=== PATIENT | male | born 1935 | race Caucasian/White ===

== ENCOUNTER 2018-11-26 13:15 | Emergency (ER) | payer MEDICARE ==
[~2018-11-26] VITALS: Ht 177.8 cm; Wt 68.0 kg
[~2018-11-26 13:15] MED LIST: ASPIRIN EC81 MG PO; CHOLESTEROL MED
[2018-11-26] MEDS ORDERED: METOPROLOL SUCC25 MG PO (13:26)
[2018-11-26] MEDS ORDERED: KEFLEX500 MG PO (15:31)
== END 2018-11-26 15:56 | disposition home or self-care (01) ==
LOC: ED 13:15
PROC: 0HQQXZZ Repair Finger Nail, External Approach (ICD-10-PCS; principal; 2018-11-26)
DX: S61.311A Laceration without foreign body of left index finger with damage to nail, initial encounter (principal); E78.00 Pure hypercholesterolemia, unspecified; Z95.5 Presence of coronary angioplasty implant and graft; Z23 Encounter for immunization; W31.2XXA Contact with powered woodworking and forming machines, initial encounter
CPT/HCPCS: 11760; 90471; 90715; 99282-25

== ENCOUNTER 2022-01-29 11:13 | Emergency (ER) | payer MEDICARE ==
[~2022-01-29] VITALS: Ht 177.8 cm; Wt 68.0 kg
[~2022-01-29 11:13] MED LIST changes: +KEFLEX500 MG PO; +METOPROLOL SUCC25 MG PO
[2022-01-29] MEDS ORDERED: ATORVASTATIN CA80 MG PO (11:33)
[2022-01-29] MEDS ORDERED: UROXATRAL10 MG PO (11:34)
[2022-01-29] MEDS ORDERED: PROSCAR5 MG PO (11:35)
[2022-01-29] MEDS ORDERED: ZITHROMAX250 MG PO (12:36)
== END 2022-01-29 12:45 | disposition home or self-care (01) ==
LOC: ED 11:13
DX: J18.9 Pneumonia, unspecified organism (principal); E78.00 Pure hypercholesterolemia, unspecified; Z79.899 Other long term (current) drug therapy
CPT/HCPCS: 71046; 99283-25; A9270

== ENCOUNTER 2022-01-29 19:56 | Inpatient (IN) | payer MEDICARE ==
[~2022-01-29] VITALS: Ht 177.8 cm; Wt 71.1 kg
[~2022-01-29 19:56] MED LIST changes: +ATORVASTATIN CA80 MG PO; +PROSCAR5 MG PO; +UROXATRAL10 MG PO; +ZITHROMAX250 MG PO
--- OUTSIDE RECORDS SUMMARY | 2022-01-29 20:04 | XMS ---
PreManage Notification: JUDI SEO Security Pest Locator Events No recent Security Events currently on file CRITERIA MET - [facility] - 2 Visits in 30 Days CARE PROVIDERS There are no care providers on record at this time. Dora has no Care Guidelines for this patient. Karina VISIT COUNT (12 MO.) [address] [facility] 2 NOTE: Visits indicate total known visits. ED/C VISIT TRACKING (12 MO.) [facility]29[facility]2022 19:57 [facility] COMPLAINT: - CHEST PAIN 01/29/2022 11:14 BRIJESH Gregory [place] TYPE: Emergency COMPLAINT: - L FLANK/RIB PAIN INPATIENT VISIT TRACKING (12 MO.) No inpatient visits to display in this time frame [id number]
--- NOTE | 2022-01-30 00:02 | NUR ---
PT ARRIVED TO THE CCU VIA STRETCHER, PT BROUGHT BY SCOTT GARCIA. PT WAS AWAKE AND ALERT ON 2L O2 NC. PT BELONGINGS PRESENT WITH HIM. PT ABLE TO STAND UP FROM THE STRETCHER AND WALK OVER TO THE CCU BED AND LAY DOWN ON IT. VITALS THEN TAKEN (SEE CHART). MAINTENANCE IVF STARTED (SEE MAR). HEALTH HISTORY COLLECTED FROM PT AT THIS TIME AND PT ASSESSED (SEE CHART). PT IS ALERT AND ORIENTED X4, FOLLOWS DIRECTIONS, REPORTS SHORTNESS OF BREATH THAT HAS BEEN PRESENT SINCE BEFORE HE ARRIVED. PT REPORTS PAIN WHEN TAKING DEEP BREATHS. HEART RATE REGULAR, LUNGS CLEAR, ACTIVE BOWEL TONES PRESENT, ABDOMEN SOFT. JVD NOTED ON PT ALONG WITH STRONG RADIAL AND PEDAL PULSES WITH BRISK CAPILLARY REFILL. PT DENIES NUMBNESS AND TINGLING TO EXTREMITIES. PT PROVIDED WITH WATER AFTERWARDS AND REPORTS NO FURTHER NEEDS WHEN ASKED. CALL LIGHT IN REACH, BED IN LOWEST POSITION, WILL CONTINUE PLAN OF CARE.
--- NOTE | 2022-01-30 02:03 | NUR ---
PT LAYING IN BED AWAKE AT THIS TIME, IVF INFUSING, PT REMAINS ON 2L O2 NC, SPO2 98%. PT DENIES HAVING ANY PAIN AT THIS TIME WHEN ASKED AND REPORTS NO FURTHER NEEDS. 300ML EMPTIED FORM THE URINAL, WILL CONTINUE PLAN OF CARE. CALL LIGHT IN REACH.
--- NOTE | 2022-01-30 04:55 | NUR ---
PT AWAKE LAYING IN BED AT THIS TIME ON 2L O2 NC, SPO2 98%. IVF INFUSING AT ORDERED RATE. PT DENIES HAVING ANY PAIN AT THIS TIME UNLESS HES COUGHING. PT DENIES THE NEED FOR PRN PAIN MEDICATION. VITALS TAKEN AT THIS TIME AND ASSESSMENT COMPLETED. PT REPORTS SOME MILD SHORTNESS OF BREATH BUT STATES IT'S IMPROVED SLIGHTLY. LUNGS ARE CLEAR IN UPPER LOBES AND DIMINISHED WITH CRACKLES IN THE BASES BILATERALLY. HEART RYTHM REGULAR, ACTIVE BOWEL TONES PRESENT, PULSES STRONG. PT REPORTS NO FURTHER NEEDS AT THIS TIME AND REMAINS RESTING IN BED, URINAL EMPTIED AT THIS TIME OF 300ML, WILL CONTINUE PLAN OF CARE.
--- NOTE | 2022-01-30 06:37 | NUR ---
IV PUMP ALARMING AT THIS TIME. IV SITE WNL, IV FLUSHED, IVF RESTARTED AND NOW INFUSING AT ORDERED RATE. PT AWAKE AND ALERT IN BED AT THIS TIME AND DENIES HAVING ANY PAIN WHEN ASKED. PT REPORTS NO NEEDS WHEN ASKED. URINAL EMPTIED OF 275ML OF URINE. CALL LIGHT WITHIN REACH AT THIS TIME, WILL CONTINUE PLAN OF CARE.
--- NOTE | 2022-01-30 07:33 | NUR ---
RECEIVED MORNING REPORT, IN TO SEE PT. PT IS RESTING IN BED WITH FAMILY AT BEDSIDE. PT IS ON 2L O2 NC WITH O2 SATS AT 99. PT STATES PAIN IN CHEST ONLY OCCURS WITH COUGH. LUNGS ARE CLEAR UPPER AND COARSE WITH CRACKLES IN LOWER LEFT BASE. PULSES ARE STRONG THROUGHOUT. PT IS IN BED EATING BREAKFAST WITH FAMILY AT BEDSIDE. CALL LIGHT WITHIN REACH, WILL CONTINUE TO MONITOR.
--- NOTE | 2022-01-30 08:19 | NUR ---
PT CONSUMED 100% OF BREAKFAST, STARTED NEW BAG OF CONTINUOUS LR RUNNING AT 125 ML/HR IN RFA IV SITE. PT IS NOW RESTING IN BED WITH SON AT BEDSIDE. NO DIFFICULTY CHEWING/SWALLOWING/SOB WITH EATING. CALL LIGHT WITHIN REACH, WILL CONTINUE TO MONITOR.
--- NOTE | 2022-01-30 09:30 | NUR ---
family at bedside at this time.
--- NOTE | 2022-01-30 09:53 | NUR ---
PT RESTING IN BED WITH FAMILY AT BEDSIDE. VOIDED 225 ML, DOCUMENTED. LR CONTINUING TO INFUSE AT 125 ML/HR INTO RFA. CALL LIGHT WITHIN REACH. NO FURTHER NEEDS AT THIS TIME. WILL CONTINUE TO MONITOR.
--- NOTE | 2022-01-30 10:12 | NUR ---
IN ROOM WITH DR ALBERTO FOR ASSESSMENT. PLAN OF CARE FOR DAY ESTABLISHED. ALL FAMILY QUESTIONS ANSWERED. CALL LIGHT WITHIN REACH. WILL CONTINUE TO MONITOR.
--- NOTE | 2022-01-30 10:24 | NUR ---
MED REC COMPLETE
--- NOTE | 2022-01-30 11:01 | NUR ---
PT ALERT, ORIENTED AND SUPPORT BY FAMILY. PT FEELS HE IS IIMPROVED, FEELS INFORMED. DR ALBERTO IN TO VISIT WITH PT. GAVE BLESSING AND WILL FOLLOW
--- NOTE | 2022-01-30 11:18 | NUR ---
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 PT IS RESTING IN BED WITH FAMILY AT BEDSIDE. PT STATES PAIN ONLY OCCURS IN CHEST DURING COUGHING AND DEEP BREATHING, WILL PROVIDE A PILLOW TO SUPPORT. RR AT 99 ON 2L NC, RR RANGES FROM 20-30'S DEPENDING ON ACTIVITY/TALKING. UPPER LUNGS CLEAR, LOWER LUNGS DIMINISHED. PT RESPIRATIONS TACHYPNEIC WITH SHALLOW BREATHING UPON EXERTION. HR REMAINS IN SINUS MID 80'S. NO DIZZINESS, NAUSEA, LIGHTHEADEDNESS REPORTED. LR DC'ED PER PHYSICIAN ORDERS, RFA IV IS NOW SALINE LOCKED. CALL LIGHT WITHIN REACH, NO FURTHER NEEDS AT THIS TIME. WILL CONTINUE TO MONITOR.
--- NOTE | 2022-01-30 13:03 | NUR ---
PT IS RESTING IN BED WITH SLEEPING IN CHAIR AT BEDSIDE. PT VOIDED 125 INTO BEDSIDE URINAL. PT STATES PAIN 10/10 IN LOWER CHEST/RIBS REGION WITH MOVEMENT/COUGHING/DEEP BREATHING. WILL ADMINISTER TYLENOL PRN FOR PAIN (SEE EMAR). CALL LIGHT WITHIN REACH, NO FURTHER NEEDS AT THIS TIME. WILL CONTINUE TO MONITOR.
--- NOTE | 2022-01-30 13:08 | NUR ---
PT GIVEN PRN TYLENOL FOR LEFT SIDED CHEST PAIN WHEN COUGHING. CALL LIGHT WITHIN REACH. WILL CONTINUE TO MONITOR.
--- NOTE | 2022-01-30 14:16 | NUR ---
VITALS CHARTED. PATIETN RESTING IN BED, AT BEDSIDE. NO OTHER NEEDS AT THIS TIME. CALL LIGHT IN EASY REACH
--- NOTE | 2022-01-30 15:23 | NUR ---
IN ROOM FOR AFTERNOON ASSESSMENT. PT IS LAYING IN BED WITH AT BEDSIDE. PT RR 20-30'S AT REST WITH SHALLOW, TACHYPNEIC RESPIRATIONS REACHING 30-40 RR WITH MOVEMENT/DEEP BREATHING. PAIN ALSO OCCURS WITH MOVEMENT IN LOWER RIB AREA. PT IS IN SR WITH HR MID 80'S. UPPER LUNGS ARE CLEAR AND LRL COARSE/LLL CRACKLES & DIMINISHED. PT REMAINS A & O. PT REPORTS TINGLING IN LEFT CALF WHICH HE STATES STARTED OCCURING WITH HIP PROBLEMS. SPOKE WITH PT ABOUT AMBULATION DOWN HALLWAY FOR MONITORING AND PT AGREED TO PLAN. PT RESTING IN BED. CALL LIGHT WITHIN REACH, WILL CONTINUE TO MONITOR.
--- NOTE | 2022-01-30 16:15 | NUR ---
ASSISTED PT WITH AMBULATION DOWN THE HALLWAY. PT EXPERIENCED LOWER RIB PAIN WITH AMBULATION, SLIGHT LIGHTHEADEDNESS, AND HEADACHE. PT AMBULATED WELL WITH STEADY GAIT, BUT REQUIRED ONE PERSON STANDBY ASSIST. PT RR INCREASED TO 40'S, HR INCREASED TO 100'S, AND O2 RANGED FROM 83-MID 90'S. PT BACK RESTING IN BED. O2 SATS RETURNED TO 90'S, RR RETURNED TO HIGH 20'S. PT AT BEDSIDE. CALL LIGHT WITHIN REACH, WILL CONTINUE TO MONITOR.
--- NOTE | 2022-01-30 16:25 | NUR ---
THIS RN TO ROOM WITH PAIN MEDICATION FOR PT PER PTS PRIMARY RN'S REQUEST. PT REPORTS 10/10 PAIN IN LEFT SIDE "WHEN I MOVE" AND 3/10 PAIN "WHEN I STAY STILL." NEW PAIN MEDICATION GIVEN. PT TALKING WITH CASE MANAGEMENT. NO ADDITIONAL NEEDS AT THIS TIME. CALL LIGHT WITHIN REACH. FAMILY AT BEDSIDE.
--- NOTE | 2022-01-30 16:29 | NUR ---
RECEIVED TRANSFER ORDERS FOR PT. 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 PT STILL STATING PAIN BELOW RIBS WITH MOVEMENT IS 10/10 ON PAIN SCALE. PER NEW ORDERS LET PT KNOW OF OXYCODONE AVAILABLE FOR PAIN, ADMINISTERED 2.5 MG (SEE EMAR). WILL PREPARE PT FOR TRANSFER AROUND 1730. CASE MANAGEMENT NOW IN ROOM SPEAKING WITH PT.
--- NOTE | 2022-01-30 17:26 | NUR ---
Pt live in a 1 story home with 5 steps. Has rail for steps, shower, and toilet. States house has been prepared for aging. He denies issues getting in and out of house with his PE's. Three children and families live in town and have been in to see. Pt states they will all help if needed. Pt has a cane and walker in the home, but has never needed. He is a and is 10% service connected. Pt. plans on dc to home when cleared medically. He denies needs. is present and also denies needs.
--- NOTE | 2022-01-30 18:09 | NUR ---
REPORT RECIEVED FROM RN AND PT. ARRIVED VIA BED. FAMILY AT BEDSIDE. HE DENIES PAIN AND RECENTLY RECEIVED PAIN MED. ALERT AND ORIENTED. PT. BROUGHT DINNER AND STATES HE IS NOT HUNGRY. ROOM AIR AND O2 SAT IS 92%. DISCUSSED SAFETY AND POC, AND PAIN MANAGEMENT. LEFT RESTING WITH CALL LIGHT IN REACH.
--- NOTE | 2022-01-30 20:29 | NUR ---
IN ROOM TO ADMINISTER OXYCODONE 5MG PO FOR 5/10 PAIN, PT STATES THE PAIN IN CHEST FEELS LIKE BROKEN RIBS, WHICH IS UNCHANGED FROM PREVIOUS PAIN. FRESH WATER AT BEDSIDE AND PT DENIES FURTHER NEEDS. CALL LIGHT AND URINAL ARE CLOSE.
--- NOTE | 2022-01-31 02:42 | NUR ---
PT APPEARS ASLEEP. RESPIRATION EVEN AND UNLABORED
--- NOTE | 2022-01-31 05:27 | NUR ---
APPEARS TO HAVE SLEPT WELL. NO DISTRESS NOTED. PT STATES HE FELT LIGHT HEADED WHEN GETTING BACK TO BED FROM BR
--- NOTE | 2022-01-31 07:37 | NUR ---
Patient awake in bed, no distress. Patient is on room air, respirations even and non labored. Patient denies chest pain and or shortness of breath at this time. Patient reports dizziness with ambulation, however. Bed alarm intact, no current needs. Personal supplies and call light within reach.
--- NOTE | 2022-01-31 08:52 | NUR ---
Patient reports discomfort to left rib area. Patient declined pain medication at this time. Patient reports he is hoping to discharge home today. Offered pt a shower, he declined. No current needs.
--- NOTE | 2022-01-31 10:02 | NUR ---
PT'S VICE PRESIDENT [employer]LOBAL ADVERTISING SALES IN IN VISITING WITH PT. PT'S IS PRESENT ALSO. GAVE BLESSING WILL FOLLOW NEEDED
--- NOTE | 2022-01-31 10:04 | NUR ---
Patient ambulated in hallway with this RN. Patient tolerated walking to end of [place] then back. Patient reports constant pain and sob with ambulation. SP02 91% immediately after walking. Patient not sure how he feels about possibly discharging home today. at bedside. Encouraged patient to rest. No current needs.
[2022-01-31] MEDS ORDERED: ELIQUIS5 MG PO (13:07)
--- NOTE | 2022-01-31 14:06 | NUR ---
AMBULATED PT UP AND DOWN MUELLER, PT SOB AND O2 STATES 89% UPON RETURNING TO . PT C/O SOB AND LIGHT DIZZINESS. RN NOTIFIED. PT BACK IN ROOM AT BEDSIDE. CALL LIGHT WITHIN REACH NO FURHTER ASSITANCE NEEDED AT THIS TIME.
--- NOTE | 2022-01-31 14:17 | NUR ---
Spoke with Dr. Marino, pt may dc tomorrow. Pt and cont. to plan for dc to home.
--- NOTE | 2022-01-31 15:23 | NUR ---
Admin tylenol 500mg po for reports of 5/10 headache.
--- NOTE | 2022-01-31 15:32 | EKG ---
[facility] [address] [facility] [place] [address] Signed Sinus rhythm with marked sinus arrhythmia Right bundle branch block Abnormal ECG No previous ECGs available Confirmed by SHAKILA ALBERTO MD ([id number]) on 01/31/2022 3:32:41 PM Electronically Signed By: SHAKILA ALBERTO MD 01/31/22 1532 PATIENT NAME: JUDI SEO Electrocardiogram DATE OF : 39 PHYSICIAN: SHAKILA ALBERTO MD REPORT #: [id number] REPORT IS CONFIDENTIAL AND NOT TO BE RELEASED WITHOUT AUTHORIZATION
--- NOTE | 2022-01-31 17:29 | NUR ---
Patient in bed resting, no distress. Patient has visitors at this time. No needs.
--- NOTE | 2022-01-31 18:43 | NUR ---
Oxycodone 5mg po admin for left chest discomfort and headache. No further needs at this time. Patient continues to visit with family.
--- NOTE | 2022-01-31 21:40 | NUR ---
WAS TAKING PT'S VS AND HR WAS IN THE 120'S. AUSCULATATED CHEST AND HR IS IRREGULAR. PLACED PT ON CONTINOUS PULSE OX AND PULSE RANGES FROM HIGH 80'S TO 120'S. CALLED PHYSICIAN WHO ORDERS AN EKG. RT WAS CALLED FOR EKG. PT ALERT AND DOES NOT APPEAR IN ANY DISTRESS.
--- NOTE | 2022-01-31 22:28 | NUR ---
EKG SHOWING AFIB RVR. PHYSICIAN CALLED. STATES TO CALL DATA VIRTUALIZATION CONSULTANT TO TRANSFER TO CCU. DATA VIRTUALIZATION CONSULTANT SHARAD CALLED. PT STATES HE IS FEELING FINE.
--- NOTE | 2022-01-31 22:52 | NUR ---
PT TRANSFERRED FROM 122 TO 130 FOR AFIB RVR. ARRIVES IN BED WITH HR 120'S. ALERT AND ORIENTED. STATES HE IS HAVING SOME CHEST PAIN THAT JUST STARTED IN THE LAST COUPLE OF HOURS. REPORT RECEIVED FROM AMIE CHAVEZ. HR 120-140'S, BP 119/89 MAP 99, RR 22 AND SPO2 94% ON ROOM AIR.
--- NOTE | 2022-01-31 23:12 | NUR ---
5MG IV METOPROLOL GIVEN PER DR ALBERTO ORDER. HR WENT FROM 120-130'S DOWN TO 100'S WITHIN APPROX 5 MINUTES. PT REMAINS AWAKE IN BED, DENIES NEEDS AT THIS TIME.
--- NOTE | 2022-02-01 00:47 | NUR ---
PT HAS CONVERTED INTO NORMAL SINUS RHYTHM AT 0034, HR NOW 80'S.
--- NOTE | 2022-02-01 02:00 | NUR ---
PT APPEARS RESTFUL, REMAINS IN SINUS RHYTHM, RESP EVEN AND UNLABORED. RR 14 AND HR 70.
--- NOTE | 2022-02-01 04:01 | NUR ---
PT CALLED TO ASK FOR PAIN MEDICATION FOR 4/10 ABDOMINAL/RIB PAIN AND A HEADACHE. 500MG PO TYLENOL GIVEN. PT ALSO USED URINAL, URINE VERY CONCENTRATED-150ML. PT STATES HE HAS BEEN ABLE TO GET SOME SLEEP, NO OTHER REQUESTS. ASSESSMENT UNCHANGED FROM EARLIER.
--- NOTE | 2022-02-01 04:07 | NUR ---
PT WENT BACK INTO AFIB, RATE 80-90'S.
--- NOTE | 2022-02-01 08:03 | NUR ---
IN PATIENT'S ROOM FOR ASSESSMENT AND VITALS. PT RESTING IN BED, SITTING UP. COFFEE BROUGHT INTO ROOM FOR PATIENT. PATIENT STATES HE IS FEELING BETTER, AND THAT HIS PAIN IS ABOUT A 5-6/10 WHEN HE TAKES A DEEP BREATH. PLAN OF CARE DSICUSSED. PT STATES HE ISN'T VERY HUNGRY, AND HAS NOTICED AT HOME THAT HE HAS LOST HIS APPETITE IN THE LAST COUPLE OF MONTHS. ASSESSMENT COMPLETE.
--- NOTE | 2022-02-01 11:37 | NUR ---
DR. ALBERTO IN TO SEE PATIENT AT THIS TIME. PLAN OF CARE BEING DISCUSSED.
--- NOTE | 2022-02-01 13:34 | NUR ---
PATIENT ATE ALMOST HALF OF HIS MEAL AND IS NOW RESTING, WANTING TO REST. PT'S REMAINS IN ROOM AND REQUESTING A WARM BLANKET. PT REMAINS IN SINUS RHYTHM, 60s. CONTINUE TO MONITOR.
--- NOTE | 2022-02-01 15:13 | NUR ---
PATIENT UP TO WALK IN HALLWAY AND TOLERATED THIS WELL. PATIENT DOWN TO 90% ON ROOM AIR AND DOES ENDORSE SOME SHORTNESS OF BREATH WITH THIS AMBULATION, BUT OVERALL TOLERATED VERY WELL. HR ONLY UP TO 80s WITH ACTIVITY. PT'S SON IN ROOM VISITING AND HIS REMAINS IN ROOM. CONTINUE TO MONITOR.
--- NOTE | 2022-02-01 16:44 | NUR ---
PATIENT RESTING IN BED AT THIS TIME. PT'S REMAINS IN ROOM. NO ASSESSMENT CHANGES. PT DENIES NEED OR DESIRE FOR PAIN MEDICATION AT THIS TIME. SCHEDULE BOWEL MANAGEMENT ORDERED PER NIO. ENCOURAGED PATIENT TO GET UP AND WALK IN MUELLER ONE MORE TIME TODAY BEFORE HE GOES TO SLEEP. PT AGREEABLE TO THIS. HR IN THE 60s, SINUS WITH SOME PACs NOTED. LAST BP 126/69. NEXT DOSE OF METOPROLOL AT 1800.
--- NOTE | 2022-02-01 19:30 | NUR ---
RECEIVED REPORT FROM DAY SHIFT RN. PT REMAINS IN SR. PT GRISELDAORT FEELS WELL HOPING TO BE DC'D TOMORROW. PT REPORT MILD PAIN WITH DEEP INSPIRATION AND MILD SOB WITH EXERTION . PT VSS, FAMILY AT BEDSIDE CALL LIGHT WITHIN REACH WILL CONTINUE TO MONITOR.
--- NOTE | 2022-02-01 22:38 | NUR ---
PT LAYING IN BED ROOM, IN NO ACUTE DISTRESS. PT CALLS TO HAVE URINAL EMPTIED. DENIES ANY CONCERNS AT THIS TIME. REMAINS IN SR CALL LIGHT WITHIN REACH WILL CONTINUE TO MONITOR.
--- NOTE | 2022-02-02 02:23 | NUR ---
PT LAYING IN BED IN NO ACUTE DISTRESS WITH EYES CLOSED. PT RESP EVEN AND UNLABORED. PT REMAINS IN SR CALL LIGHT WITHIN REACH WILL CONTINUE TO MONITOR.
--- NOTE | 2022-02-02 04:09 | NUR ---
PT CALLS ASKING FOR PRN PAIN MEDS DT CHRONIC SHOULDER PAIN. OFFERED OXYCODONE PT REQUESTED TYLENOL. ENCOURAGED PT CALL IF PAIN PERSISTS FOR OTGHER OPTIONS. PT VERBALIZED UNDERSTANDING . CALL LIGHT WITHIN REACH WILL CONTINUE TO MONITOR.
--- NOTE | 2022-02-02 05:36 | NUR ---
PT REPORTS ADEQUATE PAIN MANAGEMENT WITH PRN TYLENOL. PT REMAINS IN SR VSS, DENIES ANY OTHER CONCERNS. ASKING ABOUT A SHOWER WILL PASS ON TO DAY SHIFT CALL LIGHT WITHIN REACH WILL CONTINUE TO MONITOR
--- NOTE | 2022-02-02 08:31 | NUR ---
IN PATIENT'S ROOM TO BRING BREAKFAST AND EMPTY URINAL. PT REPORTS PAIN IS ZERO AT THIS TIME. PT STATES, "I THINK I'M READY TO GO HOME." URINAL EMPTIED FOR 600 ML YELLOW URINE, LESS CONCENTRATED THAN YESTERDAY. PT REMAINS IN ROOM AIR. PT REMAINS IN SINUS RHUYTHM, HR IN THE 60-70s. WILL CONTINUE TO MONITOR. PLAN OF CARE FOR DAY DISCUSSED.
--- NOTE | 2022-02-02 08:54 | NUR ---
DR. ALBERTO IN ROOM TO SEE PATIENT AT THIS TIME. PER REVIEW OF TELE MONITOR IN NIGHT, PT HAD A 2 MINUTES SVT RUN AROUND [id number]. PT'S HAS JUST ARRIVED IN ROOM. PT ATE MORE BREAKFAST THAN HE HAS BEEN THIS AM. PLAN OF CARE BEING DISCUSSED WITH DR. ALBERTO, PATIENT AND HIS .
--- NOTE | 2022-02-02 08:58 | NUR ---
PATIENT WILL TRANSFER TO THE MEDICAL FLOOR ON TELEMETRY AND WILL LIKELY D/C HOME TOMORROW.
--- NOTE | 2022-02-02 12:18 | NUR ---
PATIENT GIVEN AM MEDS LATE DUE TO THIS RN BEING OFF UNIT TO HELP IN ANOTHER UNIT. PT REC'D STOOL SOFTENER, WELL LACTULOSE TO HELP PATIENT HAVE A BM. PT TO MOVE OVER TO MED/SURG 118 ON TELE, CURRENTLY ON TELE #6. PT'S PARISA REMAINS IN ROOM. HR REMAINS IN THE 50-60s. ASSESMENT COMPLETE AND UNCHANGED FROM THIS AM. PT WILL D/C HOME TOMORROW LIKELY. NO FURTHER EPISODES OF SVT SINCE THE EPISODE AT 0055. WILL CONTINUE TO MONITOR.
--- NOTE | 2022-02-02 13:11 | NUR ---
REPORT FROM BERTO CHAVEZ. PT AMBULATED TO ROOM. TELE IN PLACE. WENT IN TO INTRODUCE MYSELF AND HR WAS ELEVATED. PT ASYMPTOMATIC. SPOKE WITH DR ALBERTO AND ADMINISTERED 5MG IV METOP AND XL METOP.
--- NOTE | 2022-02-02 13:16 | NUR ---
IN TO CHECK VITALS ON PATIENT UPON RN REQUEST HEART RATE ON TELE WAS FAST. PATIENT SITTING IN CHAIR WORKING ON LUNCH. VITALS CHECK AND CHARTED. PATIENT THEN TRANSFERED TO BED, SBA. RN IN ROOM. CALL LIGHT IN REACH. NO FURTHER NEEDS AT THIS TIME.
--- NOTE | 2022-02-02 13:32 | NUR ---
PT HR DOWN TO 38 BRIEFLY. ASHLI THOMSON RN AND DR ALBERTO INTO ROOM. PT AGAIN ASYMPTOMATIC. VS STABLE AT HR 65, 144/62 (62)
--- NOTE | 2022-02-02 14:08 | EKG ---
[facility] [address] [facility] [place] [address] Signed Atrial fibrillation with rapid ventricular response Right bundle branch block T wave abnormality, consider inferior ischemia Abnormal ECG When compared with ECG of 29-JAN-2022 20:03, Atrial fibrillation has replaced Sinus rhythm Vent. rate has increased BY 52 BPM T wave inversion now evident in Inferior leads Confirmed by SHAKILA ALBERTO MD ([id number]) on 02/02/2022 2:08:26 PM Electronically Signed By: SHAKILA ALBERTO MD 02/02/22 1408 PATIENT NAME: JUDI SEO Electrocardiogram DATE OF : 39 PHYSICIAN: SHAKILA ALBERTO MD REPORT #: [id number] REPORT IS CONFIDENTIAL AND NOT TO BE RELEASED WITHOUT AUTHORIZATION
--- NOTE | 2022-02-02 15:14 | NUR ---
PT HR 65 ON TELE. RESTING IN BED.
--- NOTE | 2022-02-02 17:26 | NUR ---
PT AND IN ROOM WAITING FOR DINNER. DENIES CONCERNS OR NEEDS ATT. HR ON TELE ON 60'S WITH OCCASIONAL KATEY INTO THE HIGH 30'S. REPORTS NOT NOTICING WHEN IT GOES EITHER WAY.
--- NOTE | 2022-02-02 19:30 | NUR ---
[facility] SC[facility] CASTILLO AT BEDSIDE. pt AWAKE AND RESTING IN BED, FAMILY IN ROOM. NO NEEDS OR CONCERNS AT THIS TIME. CALL LIGHT IN REACH. TELE#[address], HR WNL-NSR.
--- NOTE | 2022-02-02 21:22 | NUR ---
ASSESSMENT COMPLETE, SCHEDULED MEDS GIVEN ALONG WITH PRN TYLENOL FOR 2-3/10 PAIN W/ COUGH. pt RESTING QUIETLY IN BED, NO DISTRESS OR FACIAL GRIMACING NOTED. VSS, IV SITE WNL AND FLUSHES EASILY. pt INDEPENDENT IN ROOM. TELE#[address], SINUS RHYTHM AT THIS TIME. NO ADDITIONAL NEEDS OR CONCERNS. WILL MONITOR FOR CHANGES.
--- NOTE | 2022-02-02 22:55 | NUR ---
NOTIFIED BY VAMP STRAP IRONERSCOTT ALCALA, pt's HR WENT DOWN TO UPPER 30'S ON 2-3 OCCASSIONS IN THE LAST HOUR OR SO, FIRST TIME BEING FOR 10-15 SECONDS AND THE SECOND BEING APPROX 1 MINUTE. VS TAKEN AND STABLE. pt REPORTS INTERMITTENT CHEST PAIN AND SOB, BUT DESCRIBES IT "THE SAME" WHAT HE HAS HAD SINCE HE HAS BEEN IN HOSPITAL, AGGRAVATED BY COUGH PER pt. NO NEW S/SX OR DESCRITPION FROM pt AT THIS TIME. HR CURRENTLY IN UPPER 50'S TO LOWER 60'S. NO DISTRESS NOTED BY pt. HEAR TONES REGULAR. DR PIZARRO MADE AWARE OF ALL INFORMATION, MD TO PUT IN ORDERS FOR PRN COUGH MEDICATIONS (SEE EMAR). SCOTT THOMAS TO GIVE PRN COUGH MEDICATION, SEE EMAR. DISCUSSED PARAMETERS WITH MD, PER MD CALL IF HR SUSTAINS FOR OVER 1 MINUTE OR IF NEW S/SX DEVELOP. SOON AFTER THIS CONVERSATION, THIS RN WAS NOTIFIED BY TAI CHI INSTRUCTOR THAT HR AGAIN DROPPED TO UPPER 30'S FOR APPROX 3-4 MINUTES BUT IS NOW IN UPPER 50'S. NO CAHNGE TO pt APPEARANCE AT THIS TIME. DISCUSSED WITH MEHRDAD ALCALA, PER VAMP STRAP IRONER IF SUSTAINED HR IS SUSTAINED AGAIN, STAFF TO CALL MD. WILL CONTINUE TO MONITOR.
--- NOTE | 2022-02-02 23:45 | NUR ---
SPOKE TO CCU RN MICHELLE REGARDING PARAMETERS FROM DR PIZARRO SO CCU AND MONITOR WELL AND NOTIFY THIS RN/DRIVER SUPERVISOR IF CHANGES OCCUR. WILL CONTINUE TO MONITOR.
--- NOTE | 2022-02-03 00:50 | NUR ---
ROUNDED ON pt, pt AWAKE AND RESTING IN BED. REPORTS RECENTLY UP TO VOID, 300MLS OUTPUT NOTED ALONG WITH LARGE BM. NO ADDITIOANL NEEDS OR CONCERNS VERBALIZED, CALL LIGHT IN REACH. TELE# [address], HR LOW 50'S-SINUS KATEY. WILL CONTINUE TO MONITOR.
--- NOTE | 2022-02-03 01:45 | NUR ---
new leads to tele in place, hr 50's, sinus farheen. assessment complete. pt a/ox4, denies sob and chest pain or any pain of any kind. no acute changes to assessment. call light in reach. will monitor.
--- NOTE | 2022-02-03 04:26 | NUR ---
pt RESTING IN BED WITH EYES CLOSED, RR EVEN AND UNLABORED. NO DISTRESS NOTED, REMAINS ON RA. HR 50'S-SINUS KATEY.
--- NOTE | 2022-02-03 06:17 | NUR ---
naomy muñoz at rn station, provided with pt update. questions answered.
--- NOTE | 2022-02-03 06:30 | NUR ---
DR PIZARRO UPDATED ON pt's TRENDING HR SINCE LAST CONVERSATION VIA PHONE, INCLUDING pt's X1 3-4 MINUTE HR SUSTAINING IN 30'S EARLIER IN SHIFT AND pt's ASYMPTOMATIC RESPONSE DURING THAT TIME. NO NEW ORDERS RECEIVED AT THIS TIME. PROGRAM PARAPROFESSIONALSCOTT ALCALA AWARE AND UPDATED.
--- NOTE | 2022-02-03 07:00 | NUR ---
NO NEEDS OR CONCERNS VERBALIZED FROM pt, CALL LIGHT IN REACH. CPOX IN PLACE, pt REMAINS ON RA. SPO2 WNL, RR EVEN AND UNLABORED.
--- NOTE | 2022-02-03 07:58 | NUR ---
BEDSIDE REPORT FROM NIGHT RN, ASSUMED ALL CARE OF PT.
--- NOTE | 2022-02-03 10:30 | NUR ---
PT. RESTING IN BED, AT BEDSIDE, ASKING QUESTIONS REGARDING HIS ECHOCARDIOGRAM RESULTS. MD WILL MAKE ROUNDS. SB 58-64 SO FAR THIS SHIFT. DENIES DISCOMFORT OR CHEST PAIN.
--- NOTE | 2022-02-03 12:00 | NUR ---
Spoke with Gerson. He cont. to have tachy farheen episodes. States this causes him to feel weak and lightheaded. States this has been an issue for sometime. Per Dr. Dill pt will need cardiology appt and they are working on this. and pt are wanting to dc to home.
--- NOTE | 2022-02-03 12:45 | NUR ---
PT. AMBULATED IN HALLWAY WITH HIS . TOLERATED WELL, CPOX WITH O2 SATS WNL, SB-SR ON THE MONITOR. DENIES CP OR DISCOMFORT.
--- NOTE | 2022-02-03 16:27 | NUR ---
SUMMARY: RESTING IN BED, VSS, SB-SR ON THE MONITOR SO FAR THIS SHIFT, CPOX SATS WNL, DENIES CP OR DISCOMFORT. ADEQUATE FLUID INTAKE, GOOD APPETITE. SL IV. +BM TODAY. UP AD LEYLA IN THE ROOM. INDEPENDENT TO THE BR.
[2022-02-03] MEDS ORDERED: METOPROLOL SUC100 MG PO (18:45)
--- NOTE | 2022-02-03 23:03 | NUR ---
RESTING, NO DISTRESS, ON ROOM AIR, TELE#[address] SINUS BARADY. CALL LIGHT AT HANDSA REACH
--- NOTE | 2022-02-03 23:49 | NUR ---
TELE#[address], PT HAD A RUN OF AFIB W SVPB P 149, THEN BRADYCHARDIA P36 IRREGULAR RR, VS DONE, PT AWAKE 'I JUST GOT UP TO BR AND PEED", 'YES I FELT MY HEART RATE GOT VERY FAST BUT NO LIGHTHEADNESS OR CP. ' PT BACK IN BED. VOIDED QS ORANGE COLORED URINE. COOP WITH ASSESSMENT
--- NOTE | 2022-02-04 02:41 | NUR ---
RESTING, AWAKES EASILY, ON ROOM AIR, TELE#[address], SINUS KATEY AT THIST M[place]. COOP WITH ASSESSMENT, UP TO BR, VOIDED, BACK TO BED, NO FURTHER EPISODES OF TACHYCHARDIA. USES CALL LIGHT, TOLERATING LIQUIDS WELL
--- NOTE | 2022-02-04 03:59 | NUR ---
RESTING, NO DISTRESS, ON ROOM AIR, TELE#[address], SINUS KATEY AT 52 AT THIS TIME. CALL LIGH AND FLUIDS AT BEDSIDE
--- NOTE | 2022-02-04 05:01 | NUR ---
Pt on room air, alert and orineted, independent in room. tele#[address] pt contiues to have irregular hear rated and rhythm. ranging from afib w SVPB's HR 149- to sinus barady HR 36 low, rate stayes on mid 50's other [place], pt denies s/sx SOb or chest pain. Pt is scheduled to be dc'd today, post home cardiac teaching done with pt. stated understanding. SL patent. voiding QS. tolerating liquids well. turns and repositions sefl in bed
--- NOTE | 2022-02-04 07:25 | NUR ---
Report received from Jovanna CHAVEZ. Pt resting in bed, tele in place, HR 56 at this time. No needs identified, will continue plan of care
--- NOTE | 2022-02-04 09:25 | NUR ---
Scheduled medications administered and assessment complete. Pt resting in bed, states no chest pain, SOB, or other symptoms at this time. Tele #[address], sinus farheen at 58. LSC bilaterally. Bowel tones active. CMS intact. Pt on room air, tolerating regular diet. Pt in room and attentive to patient. Updated on POC and both are agreeable. No other needs at this time.
--- NOTE | 2022-02-04 13:00 | NUR ---
No change in plan for dc today, pt cont. with testing.
--- NOTE | 2022-02-04 13:30 | NUR ---
Pt receives ABD ultrasound. SN in room to observe. Pt has no needs at this time.
--- NOTE | 2022-02-04 15:08 | NUR ---
Pt sitting up in chair with at bedside. Assessment complete. Tele in place, HR has been sustained in 55-59 range. He reports no chest pain or SOB. Awaiting results from ultrasound.
== END 2022-02-04 16:22 | disposition home or self-care (01) | DRG 175 ==
LOC: ED 19:56 → CCU 19:58 → MS 01-30 17:30 → CCU 01-31 22:51 → MS 01-31 23:16 → CCU 01-31 23:16 → MS 02-02 13:10
PROVIDERS: ADMIT Internal Medicine; ATTEND Internal Medicine
DX: I26.99 Other pulmonary embolism without acute cor pulmonale (principal); J96.01 Acute respiratory failure with hypoxia; I47.1 Supraventricular tachycardia; J98.11 Atelectasis; R91.1 Solitary pulmonary nodule; Z20.822 Contact with and (suspected) exposure to COVID-19; I25.10 Atherosclerotic heart disease of native coronary artery without angina pectoris; N40.0 Benign prostatic hyperplasia without lower urinary tract symptoms; I51.9 Heart disease, unspecified; E78.5 Hyperlipidemia, unspecified; G89.29 Other chronic pain; M54.9 Dorsalgia, unspecified; M54.16 Radiculopathy, lumbar region; I48.91 Unspecified atrial fibrillation; Z95.5 Presence of coronary angioplasty implant and graft; Z98.890 Other specified postprocedural states; Z79.2 Long term (current) use of antibiotics; Z79.899 Other long term (current) drug therapy
CPT/HCPCS: 36415; 71045; 71260; 76705; 80048; 80053; 83735; 83880; 83930; 84484; 85025; 85379; 85610; 85730; 87502; 93005; 93010; 93306; 94760; A9270; J1170; J1650; J2405; J7121; Q9967; U0003

== ENCOUNTER 2022-11-24 16:03 | Emergency (ER) | payer OTHER, MEDICARE ==
[~2022-11-24] VITALS: Ht 177.8 cm; Wt 70.8 kg
[~2022-11-24 16:03] MED LIST changes: +ELIQUIS5 MG PO; +METOPROLOL SUC100 MG PO
[2022-11-24] MEDS ORDERED: OXYCODONE HCL5 MG PO (18:39)
[2022-11-24] MEDS ORDERED: CEPHALEXIN500 M1 PO (18:39)
--- NOTE | 2022-11-25 17:57 | EKG ---
[facility] [address] [place] [address] Signed Sinus bradycardia Right bundle branch block Abnormal ECG When compared with ECG of 31-JAN-2022 20:57, Sinus rhythm has replaced Atrial fibrillation Vent. rate has decreased BY 77 BPM T wave inversion no longer evident in Inferior leads T wave amplitude has increased in Anterior leads Confirmed by Geovanna Gary MD () on 11/25/2022 5:56:46 PM Electronically Signed By: GEOVANNA GARY MD 11/25/22 1757 PATIENT NAME: JUDI SEO Electrocardiogram DATE OF : 39 PHYSICIAN: GEOVANNA GARY MD REPORT #: [id number] REPORT IS CONFIDENTIAL AND NOT TO BE RELEASED WITHOUT AUTHORIZATION
== END 2022-11-24 19:06 | disposition home or self-care (01) ==
LOC: ED 16:03
DX: S62.623B Displaced fracture of middle phalanx of left middle finger, initial encounter for open fracture (principal); S62.651B Nondisplaced fracture of middle phalanx of left index finger, initial encounter for open fracture; S62.653B Nondisplaced fracture of middle phalanx of left middle finger, initial encounter for open fracture; W22.8XXA Striking against or struck by other objects, initial encounter; Z79.899 Other long term (current) drug therapy; Z79.01 Long term (current) use of anticoagulants
CPT/HCPCS: 73130; 93005; 93010; A9270; C9803; J0690

== ENCOUNTER 2023-04-30 14:48 | Emergency (ER) | payer OTHER, MEDICARE ==
[~2023-04-30] VITALS: Ht 177.8 cm; Wt 77.6 kg
--- OUTSIDE RECORDS SUMMARY | ~2023-04-30 | XMS | Continuity of Care Document ---
Demographics + + + | Address | [address] | | | [place] [address] | + + + | Preferred Language | Unknown | + + + | Marital Status | | + + + | Evangelical Affiliation | Unknown | + + + | Race | White | + + + | Ethnic Group | Not or | + + + Author + + + | Author | [facility] | + + + | Organization | [facility] | + + + | Address | [address] | | | [place] [address] | + + + | Phone | | + + + Care Team Providers + + + + | Care Secondary Teacher Name | Role | Phone | + + + + Unavailable | Unavailable | + + + + Unavailable | Unavailable | + + + + Allergies No information. Encounters No information. Functional Status No information. Immunizations + + + + | date | description | facility | + + + + | 2018-11-26 00:00 | Tdap | [facility] | + + + + Medications + + + + | | description | facility | + + + + | 2022-11-24 00:00 | OXYCODONE HCL | [facility] | + + + + | 2022-01-31 00:00 | APIXABAN | [facility] | + + + + | 2022-11-24 00:00 | CEPHALEXIN | [facility] | + + + + | 2022-11-24 00:00 | FINASTERIDE | [facility] | + + + + | 2022-01-29 00:00 | AZITHROMYCIN | [facility] | + + + + | 2022-11-24 00:00 | ATORVASTATIN CALCIUM | [facility] | + + + + | 2022-11-24 00:00 | ASPIRIN | [facility] | + + + + | 2022-11-24 00:00 | ALFUZOSIN HCL | [facility] | + + + + | 2022-02-03 00:00 | METOPROLOL SUCCINATE | [facility] | + + + + | 2022-11-24 00:00 | METOPROLOL SUCCINATE | [facility] | + + + + Problems + + + + | date | description | facility | + + + + | 2022-01-29 00:00 | Bilateral pulmonary | [facility] | | | embolism | | + + + + | 2022-01-29 00:00 | Left lower lobe pneumonia | [facility] | + + + + | 2022-11-24 00:00 | Open fracture of phalanx | [facility] | | | of left index finger | | + + + + | 2022-11-24 00:00 | Open fracture of phalanx | [facility] | | | of left middle finger | | + + + + Procedures No information. Results/Labs No information. Social History No information. Vital Signs + + +---------+---------+ | date | measurement | value | units | + + +---------+---------+ | 2022-11-24 00:00 | BMI | 22.4 | kg/m2 | + + +---------+---------+ | 2022-11-24 00:00 | BP_diastolic | 75 | mmHg | + + +---------+---------+ | 2022-11-24 00:00 | BP_systolic | 126 | mmHg | + + +---------+---------+ | 2022-11-24 00:00 | heart_rate | 65 | /min | + + +---------+---------+ | 2022-11-24 00:00 | height_metric | 177.8 | cm | + + +---------+---------+ | 2022-11-24 00:00 | height_standard | 70 | in | + + +---------+---------+ | 2022-11-24 00:00 | o2_saturation | 99 | % | + + +---------+---------+ | 2022-11-24 00:00 | respiration_rate | 17 | /min | + + +---------+---------+ | 2022-11-24 00:00 | temperature_metric | 36.78 | C | | | | | | + + +---------+---------+ | 2022-11-24 00:00 | | 98.2 | F | | | temperature_standar | | | | | d | | | + + +---------+---------+ | 2022-11-24 00:00 | weight_metric | 70.76 | kg | + + +---------+---------+ | 2022-11-24 00:00 | weight_standard | 156 | lb | + + +---------+---------+"
--- OUTSIDE RECORDS SUMMARY | ~2023-04-30 | XMS | Continuity of Care Document ---
Demographics + + + | Address | [address] | | | [place] [address] | + + + | Preferred Language | Unknown | + + + | Marital Status | | + + + | Congregation Affiliation | Unknown | + + + | Race | White | + + + | Ethnic Group | Not or | + + + Author + + + | Author | [facility] | + + + | Organization | [facility] | + + + | Address | [address] | | | [place] [address] | + + + | Phone | | + + + Care Team Providers + + + + | Care Cytogeneticist Name | Role | Phone | + + + + Unavailable | Unavailable | + + + + Unavailable | Unavailable | + + + + Allergies No information. Encounters No information. Functional Status No information. Immunizations + + + + | date | description | facility | + + + + | 2018-11-26 00:00 | Tdap | [facility] | + + + + Medications + + + + | | description | facility | + + + + | 2022-11-24 00:00 | OXYCODONE HCL | [facility] | + + + + | 2022-01-31 00:00 | APIXABAN | [facility] | + + + + | 2022-11-24 00:00 | CEPHALEXIN | [facility] | + + + + | 2022-11-24 00:00 | FINASTERIDE | [facility] | + + + + | 2022-01-29 00:00 | AZITHROMYCIN | [facility] | + + + + | 2022-11-24 00:00 | ATORVASTATIN CALCIUM | [facility] | + + + + | 2022-11-24 00:00 | ASPIRIN | [facility] | + + + + | 2022-11-24 00:00 | ALFUZOSIN HCL | [facility] | + + + + | 2022-02-03 00:00 | METOPROLOL SUCCINATE | [facility] | + + + + | 2022-11-24 00:00 | METOPROLOL SUCCINATE | [facility] | + + + + Problems + + + + | date | description | facility | + + + + | 2022-01-29 00:00 | Bilateral pulmonary | [facility] | | | embolism | | + + + + | 2022-01-29 00:00 | Left lower lobe pneumonia | [facility] | + + + + | 2022-11-24 00:00 | Open fracture of phalanx | [facility] | | | of left index finger | | + + + + | 2022-11-24 00:00 | Open fracture of phalanx | [facility] | | | of left [...]
[~2023-04-30 14:48] MED LIST changes: +CEPHALEXIN500 M1 PO; +OXYCODONE HCL5 MG PO
[2023-04-30 15:05] LABS: BASOPHILS 0.3 % (0-2); EOSINOPHILS 0.4 % (0-6); HEMATOCRIT 41.7 % (35.0-50.0); HEMOGLOBIN 14.1 g/dL (12.0-18.0); LYMPHOCYTES 18.9 % (24-44); MCH 32.7 (27-36); MCHC 33.8 g/dl (30-36); MCV 96.7 fl (81-99); MONOCYTES 17.6 % (0-12); NEUTROPHILS 62.8 % (39-80); PLATELET COUNT 119 K/uL (140-440); RBC 4.31 M/ul (4.3-5.7); RDW 12.8 (10.5-15.0)
[2023-04-30 15:16] LABS: PARTIAL THROMBOPLASTIN TIME 27.8 Sec (22.9-41.3)
[2023-04-30 15:20] LABS: INR 1.04 (0.80-1.30); PROTIME 13.1 Sec (11.2-14.2)
[2023-04-30 15:28] LABS: ALBUMIN 3.7 g/dL (3.4-5.0); ALBUMIN/GLOBULIN RATIO 1.03 (1.1-2.4); BUN/CREATININE RATIO 14.89 (6.0-28.6); CALCIUM 8.8 mg/dL (8.5-10.1); CREATININE, SERUM 0.94 mg/dL (0.70-1.30); MAGNESIUM 1.9 mg/dL (1.8-2.4); PROTEIN, TOTAL 7.3 g/dL (6.4-8.2)
--- NOTE | 2023-04-30 16:00 | EKG ---
[facility] [address] [place] [address] Signed Sinus bradycardia Right bundle branch block T wave abnormality, consider lateral ischemia Abnormal ECG No previous ECGs available Confirmed by ELISABETH DAMON MD ([id number]) on 04/30/2023 3:59:48 PM Electronically Signed By: ELISABETH DAMON 04/30/23 1600 PATIENT NAME: JUDI SEO Electrocardiogram DATE OF : 39 PHYSICIAN: ELISABETH DAMON REPORT #: [id number] REPORT IS CONFIDENTIAL AND NOT TO BE RELEASED WITHOUT AUTHORIZATION
[2023-04-30 16:42] VITALS: BP 140/59
[2023-04-30 17:06] LABS: INFLUENZA B NAA NEGATIVE (NEGATIVE); RESPIRATORY SYNCYTIAL VIR NAA NEGATIVE (NEGATIVE)
== END 2023-04-30 16:42 | disposition short-term general hospital (02) ==
LOC: ED 14:48
PROVIDERS: Family Medicine
DX: I21.4 Non-ST elevation (NSTEMI) myocardial infarction (principal); E78.00 Pure hypercholesterolemia, unspecified; Z79.899 Other long term (current) drug therapy; Z20.822 Contact with and (suspected) exposure to COVID-19
CPT/HCPCS: 36415; 71045; 80053; 83735; 83880; 84484; 85025; 85379; 85610; 85730; 87502; 93005; 93010; 96374; 96375; 99285-25; C9803; J1644; J2270; U0002

== ENCOUNTER 2024-07-22 09:35 | Emergency (ER) | payer MEDICARE ==
[~2024-07-22] VITALS: Ht 177.8 cm; Wt 74.2 kg
[~2024-07-22 09:35] MED LIST changes: +GENTAMICIN SULFA5 ML OD
[2024-07-22] MEDS ORDERED: TETRACAINE HCL 0.5% 4 ML BTL OD SCH (10:00)
[2024-07-22] MEDS ORDERED: ERYTHROMYCIN 3.5 GM HOME.PACK OP ONE (10:30)
[2024-07-22 10:48] VITALS: BP 153/72
== END 2024-07-22 10:48 | disposition home or self-care (01) ==
LOC: ED 09:35
DX: T15.01XA Foreign body in cornea, right eye, initial encounter (principal); W44.9XXA Unspecified foreign body entering into or through a natural orifice, initial encounter; Z79.01 Long term (current) use of anticoagulants; Z79.899 Other long term (current) drug therapy
CPT/HCPCS: 65222; 99283-25

== ENCOUNTER 2025-04-03 08:50 | Day surgery (SDC) | payer OTHER ==
[2025-04-03] VITALS (8 sets, daily range): BP systolic 150–174; BP diastolic 55–66
[~2025-04-03] VITALS: Ht 177.8 cm; Wt 76.0 kg
[~2025-04-03 08:50] MED LIST changes: +ACID CONTROLLER20 MG PO; +ADULT ASPIRIN R81 MG PO; +CEFAZOLIN SODIUM 2 GM/20 ML SYR IV SCH; +CLOPIDOGREL75 MG PO; +FAMOTIDINE20 MG PO; +IBLOOD GLUCOSE TEST STRIP 1 EA TEST VI PRN; +LACTATED RINGER'S 1,000 ML IV SCH; +LIDOCAINE HCL 1% 5 ML SDV INJ ONE; +LOW DOSE ASPIRI81 MG PO; +METOPROLOL SUCC50 MG PO; +PLAVIX75 MG PO
[2025-04-03] MEDS ORDERED: OXYCODONE/APAP 5/325 TAB PO PRN (10:15)
[2025-04-03] MEDS ORDERED: MORPHINE SULFATE 4 MG/ML VIAL IV PRN (10:15)
[2025-04-03] MEDS ORDERED: LACTATED RINGER'S 1,000 ML IV SCH (10:15)
[2025-04-03] MEDS ORDERED: LIDOCAINE HCL 2% 5 ML SDV ONE (10:22)
[2025-04-03] MEDS ORDERED: MIDAZOLAM HCL 2 MG/2 ML VIAL ONE (10:24)
[2025-04-03] MEDS ORDERED: TRANEXAMIC ACID 1,000 MG/10 ML AMP ONE (12:33)
--- NOTE | 2025-04-03 13:15 | NUR ---
PT ALERT AND INTERACTIVE ARRIVES TO [email or web address] AGREES HE IS COMFORTABLE LE STILL NUMB. FAMILY PRESENT X3. PT ORIENTED TO ROOM AND ROUTINE FRESH H20 TO BEDSIDE.
--- NOTE | 2025-04-03 13:35 | NUR ---
04/03/25 Tracie5 Patt Lopez 1242- PT PRESENTS TO PACU, SEMI VALENCIA POSITION, REACTIVE TO STIMULUS. BREATHING EVEN AND NON LABORED, O2 AT 6L PER MASK. LR INFUSING TO RFA IV. ABD SOFT, NON DISTENDED. CBI RUNNING, BAGS MARKED, AND GARDNER EMPTIED AT THIS TIME, RED FLUID. CLEAR FLUID DRAINING DOWN CATHETER TUBING. ALL MONITORS IN PLACE. 1248- PT MOVED TO ROOM AIR AT THIS TIME, CBI CONTINUES TO RUN. PT DENIES PAIN OR NAUSEA. 1255- PT WAKES OFF AND ON, NO COMPLAINTS. 1310- PT TAKEN TO MED/SURG ROOM 115, FAMILY IN ROOM. 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 PT ANSWERING QUESTIONS APPROPRIATELY, BED PLUGGED IN, REPORT TO CESAR CHAVEZ AT BEDSIDE, CARE OF PT TURNED OVER AT THIS TIME.
[2025-04-03] MEDS ORDERED: CIPRO500 MG PO (13:44)
[2025-04-03] MEDS ORDERED: OXYCODONE HCL5 M1 PO (13:47)
--- NOTE | 2025-04-03 14:18 | NUR ---
PT CONTINUES WITHOUT C/O DISCOMFORT DRINKING FRESH H20 DENIES NEED OF ANYTHING. FAMILY REMAIN PRESENT X3
--- NOTE | 2025-04-03 14:54 | NUR ---
INTO SEE PATIENT. PERSONAL HEALTH INFORMATION REVIEWED. PATIENT LIVES IN A HOUSE WITH . 2 STEPS INTO HOME. DENIES DIFFCULTY DOING THEM. PATIENT DOES NOT USE DME. DOES DRIVE. DENIES DIFFCULTY PAYING UTLITIES OR OBTAINING FOOD. NO CM NEEDS.
--- NOTE | 2025-04-03 15:33 | NUR ---
PT CALLED FOR PAIN MEDS. RATES 9\10 FROM THE PENILE TUBE PLACEMENT. ADMINISTERED PERCO. BP SLIGHTLY REESE AT 170 SYS
[2025-04-03] MEDS ORDERED: LIDOCAINE 2% VISCOUS 6 ML SYR TOP ONE (16:15)
[2025-04-03] MEDS ORDERED: LIDOCAINE 2% VISCOUS 6 ML SYR ONE (16:48)
--- NOTE | 2025-04-03 17:00 | NUR ---
PT C/O BURNING AT GARDNER INSERTION SITE DR GAN CONTACTED AGREES TO LIDOCAINE GEL. GEL APPLIED AROUND URETHA GARDNER SECURMENT DEVICE REPLACED ALLOWING MORE SLACK.
--- NOTE | 2025-04-03 18:43 | NUR ---
PT AGREES GEL WAS EFFECTIVE NO LONGER BURNING. GARDNER DRAINAGE PINKS UP A BIT WITH REPOSITIONING ALLOWED TO FREE FLOW FOR A SHORT TIME URINE CLEARS TO LIGHT YELLOW. FAMILY PRESENT X3
--- NOTE | 2025-04-03 20:00 | NUR ---
RECEIVED REPORT FROM SCOTT GUERRERO. INTO PT'S ROOM. PT RESTING IN BED, AWAKE. PT HAS NO NEEDS AT THIS TIME. CALL LIGHT WITH IN REACH. SCOTT VELASQUEZ CLAMPED CBI. URINE IN GARDNER TUBING CLEAR YELLOW.
--- NOTE | 2025-04-03 21:46 | NUR ---
INTO PT'S ROOM TO DO ASSESSMENT. PT RESTING IN BED, AWAKE. CHECKED CATHETER, PROVIDED CATHETER CARE, NO SIGNS OF INFECTION. INSTRUCTED PT ON HOW TO CLEANSE THE AREA TO AVOID INFECTION. REPLACED BLANKET AND CHANGED BED PAD DUE TO SMALL AMOUNT OF DRAINAGE ON BOTH. PT TOLERATED WELL. URINE IN CATHETER IS CLEAR YELLOW. PT RATED PAIN AT 3/10 AND PERCOCET ADMINISTERED. PT REPOSITIONED IN BED. BED IN LOW POSITION. BED RAILS X4. CALL LIGHT WITH IN REACH. PT HAS NO FURTHER NEEDS AT THIS TIME.
[2025-04-04 00:19] VITALS: BP 150/56
--- NOTE | 2025-04-04 01:35 | NUR ---
PT RESTING WITH EYES CLOSED, PULSE 58, PULSE OX 92%, BREATHING EVEN. CALL LIGHT WITH IN REACH.
[2025-04-04 02:36] VITALS: BP 133/53
--- NOTE | 2025-04-04 02:45 | NUR ---
PT RESTING IN BED, REPORTS NO PAIN. UO IN CATHETER LIGHT PINK. DENIES ANY FURTHER NEEDS OR CONCERNS AT THIS TIME.
--- NOTE | 2025-04-04 03:13 | NUR ---
TRANSFER TO CCU ORDERS ON THIS PATIENT WERE ENTERED IN ERROR.
--- NOTE | 2025-04-04 04:04 | NUR ---
PT RESTING IN BED, OPENS EYES I ENTERED THE ROOM. PERFORMED ASSESSMENT. PT REPORTS NO PAIN AT THIS TIME. PT HAS NO NEEDS. CALL LIGHT WITH IN REACH.
--- NOTE | 2025-04-04 05:40 | NUR ---
PT RESTING WITH HIS EYES CLOSED. AWAKENS I ENTERED THE ROOM. PT DENIES PAIN. NO NEEDS AT THIS TIME. CALL LIGHT WITH IN REACH.
[2025-04-04 06:09] VITALS: BP 142/47
--- NOTE | 2025-04-04 06:37 | NUR ---
IN WITH PT TO DO ASSESSMENT. CATH CARE COMPLETE, SMALL DRAINAGE AT URETHRA AND ON CHUX PAD. PT TOLERATED THIS WELL. REPORTS SOME DISCOMFORT AT THE INSERTION SITE. BED LOWERED, SIDE RAILS UP X4, CALL LIGHT WITH IN REACH. PT HAS NO FURTHER NEEDS AT THIS TIME.
--- NOTE | 2025-04-04 07:34 | NUR ---
PT RESTING IN BED REPORTS HE SLEPT WELL AND IS COMFORTABLE DENIES NEEDS OF. AGREES HE IS READY FOR BREAKFAST. CALL LIGHT AND NEEDED ITEMS IN REACH
--- NOTE | 2025-04-04 07:41 | NUR ---
DR GAN IN TO SEE PT DC INSTRUCTIONS DISCUSSED AT LENGTH ALL QUESTIONS ANSWERED. DR GAN REPORTS CALLING DR BOBO TO DISCUSS LOW HR AND METOPROLOL. DR BOBO TO PHONE HIM LATER WITH FURTHER INSTRUCTIONS. METOPROLOL TO BE HELD THIS MORNING HR HAS NOT BEEN ABOVE 50's SINCE ADMISSION. PT DENIES FUTHER QUESTIONS
--- NOTE | 2025-04-04 08:05 | NUR ---
PATIENT DID HIS AM CARE. PATIENT IS SITTING UP IN HIS BED WAITING FOR HIS BREAKFAST. REFUSED BED BATH AND SHOWER TODAY. SAID HE WILL TAKE A SHOWER WHEN HE GETS HOME. HIS BREAKFAST JUST GOT HERE.
[2025-04-04 08:48] VITALS: BP 123/45
--- NOTE | 2025-04-04 08:59 | NUR ---
IV IS OUT. DISCHARGE VITALS ARE DONE.
[2025-04-04] MEDS ORDERED: METOPROLOL SUCCINATE 50 MG TABCR PO SCH (09:00)
--- NOTE | 2025-04-04 09:11 | NUR ---
PLANS TO DC TO HOME TODAY. NO CM NEEDS.
--- NOTE | 2025-04-04 09:21 | NUR ---
PT DC'D HOME VIA W/C AFTER VERBLAIZING UNDERSTANDING OF DC INSTRUCTIONS. FAMILY X3 PRESENT. PT INSTRUCTED ON MEDS AND CATH CARE BY DR GAN WELL THIS SUTURE GAUGER TO REINFORCE. PT LEAVES WITH ALL PERSONAL ITEMS CLOTHES, HEARING AIDS, CELL PHONE. NOTHING LEFT IN THE ROOM WHEN STRIPPED FOR CLEANING
--- NOTE | 2025-04-06 11:40 | PATH ---
[facility] [address], [place] [address] Signed SPECIMEN(S): A PROSTATE CHIPS SPECIMEN SOURCE: A. PROSTATE CHIPS CLINICAL HISTORY: BPH with LUTS FINAL PATHOLOGIC DIAGNOSIS: Prostate, TURP: - Glandular and stromal hyperplasia. 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 - Negative for malignancy. SDL MICROSCOPIC EXAMINATION: Histologic sections of all submitted blocks are examined by light microscopy. These findings, together with the gross examination, support the pathologic diagnosis. GROSS DESCRIPTION: The specimen, labeled and designated "Bebe prostate tim," is received in formalin and consists of multiple fragments of pink-bray soft and rubbery tissue (24.1 g, 7.0 x 7.0 x 2.5 cm in aggregate). Approximately 68% of the specimen is submitted in cassette ([id number]). VB (under the direct supervision of a pathologist) The Gross Description was prepared using a voice recognition system. The report was reviewed for accuracy; however, sound-alike word errors, addition and/or deletions may occur. If there are any questions about this report, please contact Client Services. ADDITIONAL NOTES: Immunohistochemical and/or in situ hybridization studies if performed in this case included appropriate positive controls that reacted as expected. This test was developed and its performance characteristics determined by [facility]. It has not been cleared or approved by the U.S. Food and Drug Administration. The FDA has determined that such clearance or approval is not necessary. This test is used for clinical purposes. It should not be regarded as investigational or for research. [facility] is certified under the Clinical Laboratory Improvement PATIENT NAME: JUDI SEO PATHOLOGY DATE OF : 39 REPORT #: [id number] PHYSICIAN: MARK SOLARES PCP: ALEJO BOBO MD REPORT IS CONFIDENTIAL AND NOT TO BE RELEASED WITHOUT AUTHORIZATION [address], [place] [address] Signed Amendments of 1988 (CLIA) as qualified to perform high complexity clinical laboratory testing. PERFORMING LABORATORY: Technical component was performed by [facility], [address] [place] [id number] (CLIA# [id number]). Professional interpretation was performed by [facility], [address] [place] [id number] (CLIA#: [id number]). Diagnostician: Cele Owen MD Pathologist Electronically Signed 04/06/2025 Copies: ~ PATIENT NAME: JUDI SEO PATHOLOGY DATE OF : 39 REPORT #: [id number] PHYSICIAN: MARK SOLARES PCP: ALEJO BOBO MD REPORT IS CONFIDENTIAL AND NOT TO BE RELEASED WITHOUT AUTHORIZATION
== END 2025-04-04 09:15 | disposition home or self-care (01) ==
LOC: DS 08:50 → MS 13:30 → DS 04-04 09:15
PROVIDERS: ATTEND Urology
PROC: 0TJB8ZZ Inspection of Bladder, Via Natural or Artificial Opening Endoscopic (ICD-10-PCS; 2025-04-03)
PROC: 0VT08ZZ Resection of Prostate, Via Natural or Artificial Opening Endoscopic (ICD-10-PCS; principal; 2025-04-03 10:30)
DX: N40.1 Benign prostatic hyperplasia with lower urinary tract symptoms (principal); N41.1 Chronic prostatitis; R39.12 Poor urinary stream; R39.14 Feeling of incomplete bladder emptying; R35.1 Nocturia; N32.89 Other specified disorders of bladder; I25.10 Atherosclerotic heart disease of native coronary artery without angina pectoris; E78.5 Hyperlipidemia, unspecified; Z95.5 Presence of coronary angioplasty implant and graft; I48.0 Paroxysmal atrial fibrillation; Z79.01 Long term (current) use of anticoagulants; Z79.82 Long term (current) use of aspirin; Z79.899 Other long term (current) drug therapy
CPT/HCPCS: 00914; 51700; 82140; 82803; 83880; 84443; 84484; 88305; 96360; 96361; 96365; C1713; C1769; J0690; J0696; J2003; J2250; J2704; J7121